=== PATIENT | female | born 1975 | race Caucasian/White ===

== ENCOUNTER 2018-03-05 21:32 | Emergency (ER) | payer OTHER ==
--- NOTE | 2018-03-06 01:10 | ER ---
Nurse's Notes [facility] Name: Jason Gallegos Age: 42 yrs Sex: Female : 1975 Arrival Date: 03/05/2018 Time: 21:52 Bed 11 Private MD: Diagnosis: Thyroid nodule Presentation: 03/05 22:45 Presenting complaint: Patient states: Throat is getting swallow. Patient reports ao getting a viral infections last week and then started notice her neck is getting swallow. Patient report pain in her neck and ear. Transition of care: patient was not received from another setting of care. Onset of symptoms is unknown. Risk Assessment: Do you want to hurt yourself or someone else? Patient reports no desire to harm self or others. Initial Sepsis Screen: Does the patient meet any 2 criteria? No. Patient's initial sepsis screen is negative. Does the patient have a suspected source of infection? No. Patient's initial sepsis screen is negative. Care prior to arrival: None. 22:45 Method Of Arrival: Ambulatory ao 22:45 Acuity: ROLAND 4 ao Triage Assessment: 23:21 General: Appears comfortable, Behavior is calm, cooperative, appropriate for age. Pain: fc Complains of pain in neck Quality of pain is described as aching, dull, Pain began years ago. Is intermittent. EENT: No deficits noted. Neuro: Level of Consciousness is awake, alert, obeys commands, Oriented to person, place, time, situation. Cardiovascular: No deficits noted. Respiratory: No deficits noted. GI: No deficits noted. : No deficits noted. Derm: Skin is pink, warm \T\ dry. knot noted to frontal neck. Musculoskeletal: Circulation, motion, and sensation intact. Capillary refill < 3 seconds, Range of motion: intact in all extremities. 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 - Social history:: Smoking status: Patient/guardian denies using tobacco, Patient/guardian denies using alcohol, street drugs. - Ebola Screening: : Patient negative for fever greater than or equal to 101.5 degrees Fahrenheit, and additional compatible Ebola Virus Disease symptoms Patient denies exposure to infectious person Patient denies travel to an Ebola-affected area in the 21 days before illness onset. Screenin:20 Abuse screen: Denies threats or abuse. Nutritional screening: No deficits noted. fc Tuberculosis screening: No symptoms or risk factors identified. Fall Risk None identified. Assessment: 23:23 Reassessment: No changes from previously documented assessment. Patient and/or family fc updated on plan of care and expected duration. Pain level reassessed. Patient is alert, oriented x 3, equal unlabored respirations, skin warm/dry/pink. 03/06 00:35 Reassessment: Sin MCGOWAN at bedside to see and examine pt. fc Vital Signs: 03/05 22:49 BP 127 / 87; Pulse 82; Resp 18; Temp 98.2(O); Pulse Ox 99% on R/A; Weight 79.38 kg; ao Height 5 ft. 4 in. (162.56 cm); Pain 7/10; 03/06 01:33 Pulse 80; Resp 16; Pulse Ox 99% on R/A; ao 03/05 22:49 Body Mass Index 30.04 (79.38 kg, 162.56 cm) ao ED Course: 03/05 21:52 Patient arrived in ED. ds1 22:47 Triage completed. ao 22:50 Arm band placed on right wrist. Patient placed in waiting room, Patient notified of ao wait time. 23:20 Patient has correct armband on for positive identification. Bed in low position. Call fc light in reach. 23:20 No provider procedures requiring assistance completed. fc 23:29 Sin Quinones NP is PHCP. pm1 23:29 Erasto Young MD is Attending Physician. pm1 03/06 01:33 Patient did not have IV access during this emergency room visit. ao Administered Medications: No medications were administered Outcome: 01:10 Discharge ordered by . pm1 01:33 Discharged to home ambulatory. ao 01:33 Condition: stable 01:33 Discharge instructions given to patient, Instructed on discharge instructions, follow up and referral plans. Demonstrated understanding of instructions, follow-up care, medications, Prescriptions given X 1. 01:34 Patient left the ED. ao Signatures: Abbey Bhatt RN RN Sirisha Vang ds1 Kamlesh Ahuja, RN RN ao Sin Quinones, CHICKEN FANCIER CHICKEN FANCIER pm1
--- NOTE | 2018-03-06 01:10 | EDPHYS ---
Physician Documentation [facility] Name: Jason Gallegos Age: 42 yrs Sex: Female : 1975 Arrival Date: 03/05/2018 Time: 21:52 Bed 11 Private MD: ED Physician Erasto Young HPI: 03/06 01:00 This 42 yrs old Female presents to ER via Ambulatory with complaints of pm1 Throat Pain. 01:00 The patient or guardian complains of nodule on left side of neck. The symptoms are pm1 located anterior right aspect of neck. Onset: The symptoms/episode began/occurred 1 week(s) ago. Context:. Associated signs and symptoms: Pertinent positives: sore throat, Pertinent negatives: fever, headache, nausea, vomiting. The pain does not radiate. The patient has been recently seen by a physician: the patient's primary care provider, Dr. sevilla with similar presenting complaints, and apparently given a diagnosis of pharyngitis. Patient with thyroid node to the right side of her neck that is causing some pain. she has had it biopsied in the past, 1 year ago and it was benign. Patient noticed it again about 1 week ago with symptoms of sore throat. 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 - Social history:: Smoking status: Patient/guardian denies using tobacco, Patient/guardian denies using alcohol, street drugs. - Ebola Screening: : Patient negative for fever greater than or equal to 101.5 degrees Fahrenheit, and additional compatible Ebola Virus Disease symptoms Patient denies exposure to infectious person Patient denies travel to an Ebola-affected area in the 21 days before illness onset. ROS: 03/06 01:00 Constitutional: Negative for fever, chills, and weight loss, Eyes: Negative for injury, pm1 pain, redness, and discharge, ENT: Negative for injury, pain, and discharge. Cardiovascular: Negative for chest pain, palpitations, and edema, Respiratory: Negative for shortness of breath, cough, wheezing, and pleuritic chest pain, Abdomen/GI: Negative for abdominal pain, nausea, vomiting, diarrhea, and constipation, Back: Negative for injury and pain, : Negative for injury, bleeding, discharge, and swelling, MS/Extremity: Negative for injury and deformity, Skin: Negative for injury, rash, and discoloration, Neuro: Negative for headache, weakness, numbness, tingling, and seizure. Neck: Positive for mass, swollen nodes, Negative for pain with movement. Exam: 01:00 Constitutional: This is a well developed, well nourished patient who is awake, alert, pm1 and in no acute distress. Head/Face: Normocephalic, atraumatic. Eyes: Pupils equal round and reactive to light, extra-ocular motions intact. Lids and lashes normal. Conjunctiva and sclera are non-icteric and not injected. Cornea within normal limits. Periorbital areas with no swelling, redness, or edema. ENT: Nares patent. No nasal discharge, no septal abnormalities noted. Tympanic membranes are normal and external auditory canals are clear. Oropharynx with no redness, swelling, or masses, exudates, or evidence of obstruction, uvula midline. Mucous membranes moist. 01:00 Chest/axilla: Normal chest wall appearance and motion. Nontender with no deformity. No lesions are appreciated. Cardiovascular: Regular rate and rhythm with a normal S1 and S2. No gallops, murmurs, or rubs. Normal PMI, no JVD. No pulse deficits. Respiratory: Lungs have equal breath sounds bilaterally, clear to auscultation and percussion. No rales, rhonchi or wheezes noted. No increased work of breathing, no retractions or nasal flaring. Abdomen/GI: Soft, non-tender, with normal bowel sounds. No distension or tympany. No guarding or rebound. No evidence of tenderness throughout. Back: No spinal tenderness. No costovertebral tenderness. Full range of motion. Skin: Warm, dry with normal turgor. Normal color with no rashes, no lesions, and no evidence of cellulitis. MS/ Extremity: Pulses equal, no cyanosis. Neurovascular intact. Full, normal range of motion. Neuro: Awake and alert, GCS 15, oriented to person, place, time, and situation. Cranial nerves II-XII grossly intact. Motor strength 5/5 in all extremities. Sensory grossly intact. Cerebellar exam normal. Normal gait. 01:00 Neck: External neck: mass, that is very small, of the right aspect of thyroid, that is tender to palpation, Lymph nodes: no appreciated lymphadenopathy. Vital Signs: 03/05 22:49 BP 127 / 87; Pulse 82; Resp 18; Temp 98.2(O); Pulse Ox 99% on R/A; Weight 79.38 kg; ao Height 5 ft. 4 in. (162.56 cm); Pain 7/10; 03/06 01:33 Pulse 80; Resp 16; Pulse Ox 99% on R/A; ao 03/05 22:49 Body Mass Index 30.04 (79.38 kg, 162.56 cm) ao MDM: 03/05 23:29 Patient medically screened. pm1 03/06 01:01 Physician consultation: Erasto Young MD regarding consult, patient's condition, pm1 recommends ultrasound outpatient for her possible thyroid nodule. 01:08 Data reviewed: vital signs. Data interpreted: Pulse oximetry: on room air is 99 %. pm1 Interpretation: normal. Counseling: I had a detailed discussion with the patient and/or guardian regarding: the historical points, exam findings, and any diagnostic results supporting the discharge/admit diagnosis, the need for outpatient follow up, to return to the emergency department if symptoms worsen or persist or if there are any questions or concerns that arise at home. Administered Medications: No medications were administered Disposition: 06:41 Co-signature as Attending Physician, Erasto Young MD Available for consultation at ps1 all times. . Disposition: 03/06/18 01:10 Discharged to Home. Impression: Thyroid nodule. - Condition is Stable. - Discharge Instructions: Thyroid Nodule. - Prescriptions for Tylenol- Codeine #3 300-30 mg Oral Tablet - take 2 tablets by ORAL route every 6 hours As needed; 20 tablet. - Medication Reconciliation Form, Thank You Letter, Antibiotic Education, Prescription Opioid Use form. - Follow up: Emergency Department; When: As needed; Reason: Worsening of condition. Follow up: Private Physician; When: 2 - 3 days; Reason: Recheck today's complaints, Continuance of care, Re-evaluation by your physician. - Problem is new. - Symptoms have improved. Signatures: Kamlesh Ahuja, RN RN ao Sin Quinones, BUSINESS TEST ANALYST BUSINESS TEST ANALYST pm1 Erasto Young MD MD ps1 Corrections: (The following items were deleted from the chart) 01:11 01:10 03/06/2018 01:10 Discharged to Home. Impression: Acute pharyngitis. Condition is pm1 Stable. Forms are Medication Reconciliation Form, Thank You Letter, Antibiotic Education, Prescription Opioid Use. Follow up: Emergency Department; When: As needed; Reason: Worsening of condition. Follow up: Private Physician; When: 2 - 3 days; Reason: Recheck today's complaints, Continuance of care, Re-evaluation by your physician. Problem is new. Symptoms have improved. pm1 01:34 01:11 03/06/2018 01:10 Discharged to Home. Impression: Thyroid nodule. Condition is ao Stable. Discharge Instructions: Thyroid Nodule. Prescriptions for Tylenol-Codeine #3 300-30 mg Oral Tablet - take 2 tablets by ORAL route every 6 hours As needed; 20 tablet. and Forms are Medication Reconciliation Form, Thank You Letter, Antibiotic Education, Prescription Opioid Use. Follow up: Emergency Department; When: As needed; Reason: Worsening of condition. Follow up: Private Physician; When: 2 - 3 days; Reason: Recheck today's complaints, Continuance of care, Re-evaluation by your physician. Problem is new. Symptoms have improved. pm1
[2018-03-06 02:53] VITALS: BP 127/87; TEMP 98.2; O2SAT 99
== END 2018-03-06 01:34 | disposition home or self-care (01) ==
LOC: ER 21:32
DX: E04.1 Nontoxic single thyroid nodule (principal); E78.00 Pure hypercholesterolemia, unspecified
CPT/HCPCS: 99282

== ENCOUNTER 2019-11-15 13:50 | Emergency (ER) | payer SELFPAY, OTHER ==
--- OUTSIDE RECORDS SUMMARY | 2019-11-15 13:52 | XMS REPORT | Continuity of Care Document ---
:1975 Author Organization [facility] t Address [address] [place] [address] Care Team Providers Name Role Phone Stacy RN Attending Clinician Unavailable Lab, Fam Pob I Attending Clinician Unavailable Problems This patient has no known problems. Allergies, Adverse Reactions, Alerts This patient has no known allergies or adverse reactions. Medications This patient has no known medications. Procedures This patient has no known procedures. Encounters Start End Encounter Admission Attending Care Care Encounter Source Date/Time Date/Time Type Type Clinicians Facility Department ID 2019-10-16 2019-10-16 Telephone Naomi Kumar [id number] 00:00:00 00:00:00 CENTER LINE [id number] [facility] [id number] 2019-10-14 2019-10-14 Laboratory Lab, [facility] [id number] 06:51:46 07:11:46 Only Fam Pob I Health [id number] [place] [id number] Jay [phone] [address]al [address] Results This patient has no known results.
--- OUTSIDE RECORDS SUMMARY | 2019-11-15 13:53 | XMS REPORT | Summary of Care ---
:1975 Author Organization [facility] Address [address] [place] [address] Care Team Providers Name Role Phone Unavailable Primary Care Provider Unavailable Reason for Visit Reason Comments Exposure Encounter Details Date Type Department Care Team Description 10/14/2019 Laboratory Only [facility] Family Frank Schrader, GLASS LOADING EQUIPMENT TENDER [address] [phone] Exposure to Covid-19 Medicine - [place] [facility], Ad[facility] Fam Pob I Virus [address] [place] [phone] Allergies Active Allergy Reactions Severity Noted Date Comments Morphine Nausea and/or Vomiting 10/30/2012 documented as of this encounter (statuses as of 10/14/2019) Medications Medication Sig Dispensed Refills Start Date End Date Status atorvastatin (LIPITOR) 20 Take 1 Tab by 90 Tab 1 10/11/2014 Active mg tabletIndications: Pure mouth at hypercholesterolemia bedtime. amitriptyline 50 mg tablet Take 50 mg by 0 Active mouth at bedtime. pantoprazole 40 mg EC Take 1 tablet 30 tablet 0 07/30/2016 Active tablet by mouth daily. ibuprofen 600 mg tablet Take 1 tablet 20 tablet 0 07/30/2016 Active by mouth every 8 (eight) hours as needed for Pain (scale 4-6). documented as of this encounter (statuses as of 10/14/2019) Active Problems Problem Noted Date Dyslipidemia 07/28/2016 Obesity (BMI 30-39.9) 07/27/2016 Atypical chest pain 07/27/2016 Multiple thyroid nodules 2014 Weight gain 2014 Fatigue 2014 Pure hypercholesterolemia 2014 Cyst, breast solitary 11/04/2012 Overview: 11/17/2012- IMPRESSION: LEFT BREAST: Simple cyst on ultrasound a t 9 o'clock. Benign, no evidence of malignancy. Age appropriate exams. As per ACR and ACS guidelines, mammmograms recommended starting at age 40. RIGHT BREAST: Negative, no evidence of m alignancy. Normal interval follow-up is recommended in 12 months. These findings and recommendations were discussed in detail with the patient at the conclusion of today's exa mination. OVERALL ASSESSMENT - CATEGORY 2 - BENIGN END OF IMPRESSION Encounter for routine gynecological examination 2012 Overview: Medical records received. Evy. DOS- 08/16/2011. Impression: several masses within the left breast likely representing benign complex cysts. Recommended f/u in 6 months. Benign appearing right breast. ICD10 Diagnosis Term Bottoming Room Supervisor Utility Generalized anxiety disorder 10/30/2012 Migraines 10/30/2012 H/O total hysterectomy 10/30/2012 Anemia 10/30/2012 Overview: ICD10 Diagnosis Term Bottoming Room Supervisor Utility Pain pelvic 10/30/2012 Overview: Medical record received. DOS- 10/26/2012 . Recommendation for Ultrasound. documented as of this encounter (statuses as of 10/14/2019) Social History Tobacco Use Types Packs/Day Years Used Date Never Smoker Smokeless Tobacco: Never Used Alcohol Use Drinks/Week oz/Week Comments Not Asked Sex Assigned at Date Recorded Not on file Job Start Date Occupation Industry Not on file Not on file Not on file Travel History Travel Start Travel End No recent travel history available. COVID-19 Exposure Response Date Recorded In the last month, have you been in contact with Yes 10/13/2019 3:36 PM CDT someone who was confirmed or suspected to have Coronavirus / COVID-19? documented as of this encounter Last Filed Vital Signs Not on filedocumented in this encounter Plan of Treatment Name Type Priority Associated Diagnoses Order S chedule COVID-19 (PCR MOLECULAR LAB Routine Exposure to Covid -19 Expected: 10/14/2019, TESTING) Virus Expires: 2020 Health Maintenance Due Date Last Done Comments DTaP,Tdap,and Td Vaccines (1 1988 - Tdap) Depression Screening 1989 PAP SMEAR 10/31/2015 10/30/2012, 08/27/2003 Breast Cancer Screening 2017 11/17/2012 (MAMMOGRAM) INFLUENZA VACCINE (#1) 2019 PNEUMOCOCCAL 0-64 YEARS Aged Out No longe r eligible based COMBINED SERIES on patient's age to complete this to [facility] documented as of this encounter Results Not on filedocumented in this encounter Visit Diagnoses Diagnosis Exposure to Covid-19 Virus documented in this encounter Additional Health Concerns Infection Onset Date Last Indicated Resolved Time COVID-19 Rule Out 10/14/2019 10/14/2019 documented as of this encounter
--- OUTSIDE RECORDS SUMMARY | 2019-11-15 13:53 | XMS REPORT | Summary of Care ---
:1975 Author Organization [facility] Address [address] [place] [id number] Care Team Providers Name Role Phone Unavailable Primary Care Provider Unavailable Reason for Visit Reason Comments Results Encounter Details Date Type Department Care Team Description 10/16/2019 Telephone [facility] Naomi Kumar RN Results [address] [place] [address] [phone] Allergies Active Allergy Reactions Severity Noted Date Comments Morphine Nausea and/or Vomiting 10/30/2012 documented as of this encounter (statuses as of 10/16/2019) Medications Medication Sig Dispensed Refills Start Date [...] as of this encounter (statuses as of 10/16/2019) Active Problems Problem Noted Date Dyslipidemia 07/28/2016 [...] Benign appearing right breast. ICD10 Diagnosis Term Motor Assembly Supervisor Utility Generalized anxiety disorder 10/30/2012 Migraines 10/30/2012 H/O total hysterectomy 10/30/2012 Anemia 10/30/2012 Overview: ICD10 Diagnosis Term Motor Assembly Supervisor Utility Pain pelvic 10/30/2012 Overview: Medical record received. DOS- 10/26/2012 . Recommendation for Ultrasound. documented as of this encounter (statuses as of 10/16/2019) Social History Tobacco Use Types Packs/Day Years [...] filedocumented in this encounter Plan of Treatment Health Maintenance Due Date Last Done Comments DTaP,Tdap,and Td Vaccines (1 1988 - Tdap) Depression Screening 1989 PAP SMEAR 10/31/2015 10/30/2012, 08/27/2003 Breast Cancer Screening 2017 11/17/2012 (MAMMOGRAM) INFLUENZA VACCINE (#1) 2019 PNEUMOCOCCAL 0-64 YEARS Aged Out No longe r eligible based COMBINED SERIES on patient's age to complete this to [facility] documented as of this encounter Results Not on filedocumented in this encounter Insurance Payer Benefit Plan / Subscriber ID Effective Phone Address [employer] Dates HIM [facility] [id number] 2016-[employer]iley [phone] [address] [employer] [phone] [place] [address] documented as of this encounter
[2019-11-15] MEDS ORDERED: SMZ./TMP. 800/160 MG TABLET ONE (14:45)
--- NOTE | 2019-11-15 15:32 | RAD REPORT ---
EXAM DESCRIPTION: RAD - Chest Single View - 11/15/2019 3:14 pm CLINICAL HISTORY: Cough;Fever Chest pain. COMPARISON: Chest Pa And Lat (2 Views) dated 03/27/2017 FINDINGS: Portable technique limits examination quality. The lungs are grossly clear. The heart is normal in size. No displaced fractures. IMPRESSION: No acute intrathoracic process suspected.
--- NOTE | 2019-11-15 17:18 | ER ---
Nurse's Notes [facility] Name: Jason Gallegos Age: 44 yrs Sex: Female : 1975 Arrival Date: 11/15/2019 Time: 13:52 Bed 15 Private MD: Enrique Johnson R Diagnosis: Cellulitis of left lower limb Presentation: 11/14 14:13 Chief complaint: Patient states: fever up to 102.9 F, cough, sore throat, hoarse voice, aa5 and chest pressure that began . Last Tylenol was today around 1230. 14:13 Coronavirus screen: cough unrelated to allergies, fever, sore throat, Client presents aa5 with at least one sign or symptom that may indicate coronavirus-19. Standard/surgical mask placed on the client. Provider contacted for isolation considerations. Ebola Screen: Patient negative for fever greater than or equal to 101.5 degrees Fahrenheit, and additional compatible Ebola Virus Disease symptoms. Initial Sepsis Screen: Does the patient meet any 2 criteria? No. Patient's initial sepsis screen is negative. Does the patient have a suspected source of infection? No. Patient's initial sepsis screen is negative. Risk Assessment: Do you want to hurt yourself or someone else? Patient reports no desire to harm self or others. Onset of symptoms was November 2019. 14:13 Method Of Arrival: Ambulatory aa5 14:13 Acuity: ROLAND 3 aa5 Historical: - Allergies: 14:13 No Known Allergies; aa5 - PMHx: 14:13 Endometrosis; High Cholesterol; Migraines; aa5 - PSHx: 14:13 Hysterectomy; Appendectomy; Cholecystectomy; aa5 - Immunization history:: Adult Immunizations up to date. - Family history:: not pertinent. - Social history:: Smoking status: Patient denies any tobacco usage or history of. - Hospitalizations: : No recent hospitalization is reported. Screenin:54 Abuse screen: Denies threats or abuse. Denies injuries from another. Nutritional ks7 screening: No deficits noted. Tuberculosis screening: No symptoms or risk factors identified. Fall Risk None identified. Assessment: 14:52 General: Appears in no apparent distress. uncomfortable, Behavior is cooperative. Pain: ks7 Complains of pain in sore throat, "achy bones", FRANK Pain currently is 8 out of 10 on a pain scale. Quality of pain is described as aching, Pain began 2-3 days ago. Is continuous. Respiratory: Airway is patent Respiratory effort is even, BARR[place]AN Breath sounds are clear bilaterally. in right upper lobe, left upper lobe, left posterior lower lobe, right posterior middle lobe and right posterior lower lobe. EENT: Throat is reddened with gag reflex present. 15:51 Reassessment: Patient is alert, oriented x 3, equal unlabored respirations, skin ks7 warm/dry/pink. Vital Signs: 14:13 BP 142 / 72; Pulse 97; Resp 16 S; Temp 99.7(O); Pulse Ox 99% on R/A; aa5 14:30 BP 142 / 72; Pulse 88; Resp 18; Pulse Ox 97% on R/A; Pain 8/10; ks7 15:50 BP 119 / 80; Pulse 90; Resp 18; Pulse Ox 100% on R/A; Pain 7/10; ks7 17:22 BP 109 / 75; Pulse 93; Resp 18; Pulse Ox 100% on R/A; Pain 5/10; ks7 18:04 BP 109 / 75; Pulse 85; Resp 18; Temp 99.4(O); Pulse Ox 96% on R/A; Pain 5/10; ks7 ED Course: 13:52 Patient arrived in ED. ag5 13:53 Enrique Johnson MD is Private Physician. ag5 13:59 Cesar Bender MD is Attending Physician. rn 14:13 Arm band placed on. aa5 14:27 Rupinder Booth, ROSA ELENA is Primary Nurse. ks7 14:33 Triage completed. aa5 14:52 COVID-19 Sent. ks7 14:52 Flu Sent. ks7 14:52 Strep Sent. ks7 14:54 Resting quietly. ks7 14:54 Patient has correct armband on for positive identification. Bed in low position. Call ks7 light in reach. Side rails up X2. 14:54 No provider procedures requiring assistance completed. Patient did not have IV access ks7 during this emergency room visit. Administered Medications: 14:52 Drug: Bactrim (160 mg-800 mg (DS) 1 tablet Route: PO; ks7 Outcome: 17:18 Discharge ordered by . rn 18:04 Discharged to home ambulatory. ks7 18:04 Condition: stable 18:04 Discharge instructions given to patient, Instructed on discharge instructions, medication usage, Demonstrated understanding of instructions, medications, Prescriptions given X 1. 18:07 Patient left the ED. ks7 Addendum: 11/18/2019 11:55 Addendum: COVID-19 Result: Positive result giiven to ED physician to notify pt. i w Physician: Matthias Benavidez MD Physician was able to contact pt and pt was notified of positive COVID-19 swab result. Physician answered pt questions. Signatures: Vale Ortega, RN Cesar Small MD MD rn Calderon, Audri, RN RN aa5 Anup Son 5 Rupinder Booth RN RN ks7 Corrections: (The following items were deleted from the chart) 11/14 14:56 14:54 BP 142 / 72; Pulse 88bpm; Resp 18bpm; Pulse Ox 97% RA; Pain 8/10; ks7 ks7
--- NOTE | 2019-11-15 17:18 | EDPHYS ---
Physician Documentation [facility] Name: Jason Gallegos Age: 44 yrs Sex: Female : 1975 Arrival Date: 11/15/2019 Time: 13:52 Bed 15 Private MD: Enrique Johnosn R ED Physician Cesar Bender HPI: 11/14 14:45 This 44 yrs old Female presents to ER via Ambulatory with complaints of rn Cough, Fever, Sore Throat, Chest Pressure. 14:45 The patient or guardian reports cough, chest pressure. rn 14:45 Onset: The symptoms/episode began/occurred 3 day(s) ago. Severity of symptoms: At their rn worst the symptoms were mild, in the emergency department the symptoms are unchanged. Associated signs and symptoms: Pertinent positives: fever, sore throat, cough, rash. The patient has experienced similar episodes in the past. Reports fever and chills, + myalgias, began a few days ago, assoc with mild cough and chest pressure, also reports "another staph infection" to left outer thigh. No abd pain or urinary symptoms. . Historical: - Allergies: 14:13 No Known Allergies; aa5 - PMHx: 14:13 Endometrosis; High Cholesterol; Migraines; aa5 - PSHx: 14:13 Hysterectomy; Appendectomy; Cholecystectomy; aa5 - Immunization history:: Adult Immunizations up to date. - Family history:: not pertinent. - Social history:: Smoking status: Patient denies any tobacco usage or history of. - Hospitalizations: : No recent hospitalization is reported. ROS: 14:45 Constitutional: + fever Eyes: Negative for injury, pain, redness, and discharge, ENT: + rn sore throat Neck: Negative for injury, pain, and swelling, Cardiovascular: Negative for chest pain, palpitations, and edema, Respiratory: + cough, neg sob Abdomen/GI: Negative for abdominal pain, nausea, vomiting, diarrhea, and constipation, MS/Extremity: Negative for injury and deformity, Skin: Negative for injury, rash, and discoloration, Neuro: Negative for weakness, numbness, tingling, and seizure. Exam: 14:45 Constitutional: This is a well developed, well nourished patient who is awake, alert, rn and in no acute distress. Head/Face: Normocephalic, atraumatic. ENT: no stridor Cardiovascular: Regular rate and rhythm. No pulse deficits. Respiratory: Speaking full sentences. No increased work of breathing, no retractions or nasal flaring. Abdomen/GI: soft, non-tender Skin: Warm, dry, + left outer mid-thigh with draining wound, + purulence, no fluctuance, + approx 8-10cm irregular erythema with warmth and blanches MS/ Extremity: Pulses equal, no cyanosis. Neurovascular intact. Full, normal range of motion. Equal circumference. Neuro: Awake and alert, GCS 15, oriented to person, place, time, and situation. Cranial nerves II-XII grossly intact. Motor strength 5/5 in all extremities. Sensory grossly intact. Cerebellar exam normal. Normal gait. Vital Signs: 14:13 BP 142 / 72; Pulse 97; Resp 16 S; Temp 99.7(O); Pulse Ox 99% on R/A; aa5 14:30 BP 142 / 72; Pulse 88; Resp 18; Pulse Ox 97% on R/A; Pain 8/10; ks7 15:50 BP 119 / 80; Pulse 90; Resp 18; Pulse Ox 100% on R/A; Pain 7/10; ks7 17:22 BP 109 / 75; Pulse 93; Resp 18; Pulse Ox 100% on R/A; Pain 5/10; ks7 18:04 BP 109 / 75; Pulse 85; Resp 18; Temp 99.4(O); Pulse Ox 96% on R/A; Pain 5/10; ks7 MDM: 13:59 Patient medically screened. rn 17:17 Differential Diagnosis: Upper Respiratory Infection Viral Syndrome Pneumonia Other rn COVID-19, staph, cellulitis. Data reviewed: vital signs, nurses notes, lab test result(s), radiologic studies, plain films, and as a result, I will discharge patient. Counseling: I had a detailed discussion with the patient and/or guardian regarding: the historical points, exam findings, and any diagnostic results supporting the discharge/admit diagnosis, lab results, radiology results, the need for outpatient follow up, to return to the emergency department if symptoms worsen or persist or if there are any questions or concerns that arise at home. Special discussion: I discussed with the patient/guardian in detail that at this point there is no indication for admission to the hospital. It is understood, however, that if the symptoms persist or worsen the patient needs to return immediately for re-evaluation. 11/14 14:25 Order name: Strep rn 11/14 14:25 Order name: Flu rn 11/14 14:25 Order name: COVID-19 rn 11/14 14:25 Order name: XRAY Chest (1 view) rn 11/14 16:47 Order name: Group A Streptococcus Rapid Sc; Complete Time: 17:17 EDMS 11/14 16:59 Order name: Influenza Screen (A ; Complete Time: 17:17 EDMS 11/14 15:32 Order name: RAD; Complete Time: 15:43 EDMS Administered Medications: 14:52 Drug: Bactrim (160 mg-800 mg (DS) 1 tablet Route: PO; ks7 Disposition: 11/15/19 17:18 Discharged to Home. Impression: Cellulitis of left lower limb. - Condition is Stable. - Discharge Instructions: Cellulitis, Adult. - Prescriptions for Bactrim DS 800- 160 mg Oral Tablet - take 1 tablet by ORAL route every 12 hours for 10 days; 20 tablet. - Medication Reconciliation Form, Thank You Letter, Antibiotic Education, Prescription Opioid Use, Work release form form. - Follow up: Private Physician; When: As needed; Reason: Recheck today's complaints, Re-evaluation by your physician. - Problem is new. - Symptoms have improved. Signatures: Dispatcher [employer] EDMS Cesar Bender MD MD rn Calderon, Audri RN RN aa5 Rupinder Booth RN RN ks7 Corrections: (The following items were deleted from the chart) 18:06 17:18 11/15/2019 17:18 Discharged to Home. Impression: Cellulitis of left lower limb. ks7 Condition is Stable. Forms are Medication Reconciliation Form, Thank You Letter, Antibiotic Education, Prescription Opioid Use. Follow up: Private Physician; When: As needed; Reason: Recheck today's complaints, Re-evaluation by your physician. Problem is new. Symptoms have improved. rn 18:07 18:06 11/15/2019 17:18 Discharged to Home. Impression: Cellulitis of left lower limb. ks7 Condition is Stable. Discharge Instructions: Cellulitis, Adult. Prescriptions for Bactrim DS 800-160 mg Oral Tablet - take 1 tablet by ORAL route every 12 hours for 10 days; 20 tablet. and Forms are Medication Reconciliation Form, Thank You Letter, Antibiotic Education, Prescription Opioid Use, Work release form. Follow up: Private Physician; When: As needed; Reason: Recheck today's complaints, Re-evaluation by your physician. Problem is new. Symptoms have improved. ks7
[2019-11-15 18:27] VITALS: BP 109/75
[2019-11-15 18:28] VITALS: TEMP 99.4; O2SAT 96
== END 2019-11-15 18:07 | disposition home or self-care (01) ==
LOC: ER 13:50
DX: U07.1 COVID-19 (principal); L03.116 Cellulitis of left lower limb
CPT/HCPCS: 71045; 87070; 87081; 87804; 99283; U0002

== ENCOUNTER 2020-06-22 17:02 | Emergency (ER) | payer OTHER, SELFPAY ==
--- OUTSIDE RECORDS SUMMARY | 2020-06-22 17:05 | XMS REPORT | Continuity of Care Document ---
:1975 Author Organization [facility] t Address [address] [place] [address] [address]. [address] [place] [address] Care Team Providers Name Role Phone Stacy [...] 2019-10-16 2019-10-16 Telephone Naomi Kumar [id number] 00:00:00 00:00:00 [place] [id number] [facility] [id number] [phone] 2019-10-14 2019-10-14 Laboratory Lab, [facility] [id number] 06:51:46 07:11:46 Only [facility] [id number] [place] [id number] Professio [phone] nal [address] One Results This patient has no known results.
[2020-06-22] MEDS ORDERED: CEFTRIAXONE/SWI 1gm 1 GM/10 ML SYR ONE (20:27)
[2020-06-22 20:42] LABS: Absolute Lymphocytes (CBC) 2.6 K/uL (0.7-4.9); Basophils % 1.3 % (0-1.3); Lymphocytes % 40.7 % (15.3-44.8); RBC Red Blood Cell Count 4.92 M/uL (3.86-4.86)
[2020-06-22] MEDS ORDERED: ONDANSETRON 4 MG/2 ML VIAL ONE (20:50)
[2020-06-22] MEDS ORDERED: MORPHINE 2 MG/ML SYR ONE (20:50)
[2020-06-22 21:12] LABS: ALT/SGPT 19 U/L (12-78); AST/SGOT 12 U/L (15-37); Albumin 4.1 g/dL (3.4-5.0); BUN Blood Urea Nitrogen 9 mg/dL (7-18); Bicarbonate 30 mmol/L (21-32); Bilirubin Direct 0.2 mg/dL (0-0.2); Bilirubin Total 0.7 mg/dL (0.2-1.0); Glucose Level 74 mg/dL (74-106); Magnesium 2.6 mg/dL (1.8-2.4); Potassium 3.7 mmol/L (3.5-5.1); Protein, Total 7.6 g/dL (6.4-8.2); Sodium Level 141 mmol/L (136-145); Thyroid Stimulating Hormone 0.324 uIU/mL (0.360-3.740); Troponin (Emerg Dept Use Only) < 0.02 ng/mL (0.0-0.045)
[2020-06-22 21:14] LABS: Alkaline Phosphatase ND U/L (45-117)
--- NOTE | 2020-06-22 21:29 | RAD REPORT ---
EXAM DESCRIPTION: RAD - Chest Single View - 06/22/2020 8:45 pm CLINICAL HISTORY: COUGH COMPARISON: Single-view chest November 15, 2019 TECHNIQUE: AP portable chest image was obtained 06/22/2020 8:45 pm . FINDINGS: Lungs are clear. Heart and vasculature are normal. No measurable pleural effusion and no p neumothorax. No acute bony abnormality seen. No acute aortic findings suspected. IMPRESSION: No acute cardiopulmonary process. No significant change from comparison study.
[2020-06-22 21:59] LABS: Blood Morphology Comment NOT SEEN (NOT SEEN); Platelet Estimate ADEQ; White Blood Cell Scan OK (OK)
[2020-06-22] MEDS ORDERED: AMOX/K CLAV 875 MG TAB ONE (22:10)
[2020-06-22] MEDS ORDERED: dexAMETHasone 10 MG/ML VIAL ONE (22:10)
--- NOTE | 2020-06-22 22:13 | EDPHYS ---
Physician Documentation [facility] Name: Jason Gallegos Age: 45 yrs Sex: Female : 1975 Arrival Date: 06/22/2020 Time: 17:05 Bed 15 Private MD: YASH Physician Niko Hoff HPI: 06/22 20:03 This 45 yrs old Female presents to ER via Ambulatory with complaints of Neck javed Issue, Ear Pain. 20:03 The patient presents with pain, that is acute. The complaints affect the right ear, javed left ear and chin. Onset: The symptoms/episode began/occurred 3 day(s) ago. Modifying factors: The symptoms are alleviated by nothing, the symptoms are aggravated by nothing. Associated signs and symptoms: The patient has no apparent associated signs or symptoms. Severity of symptoms: At their worst the symptoms were mild in the emergency department the symptoms are unchanged. The patient has not experienced similar symptoms in the past. 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 - Social history:: Smoking status: Patient denies any tobacco usage or history of. - Family history:: not pertinent. ROS: 20:03 Constitutional: Negative for fever, chills, and weight loss, Eyes: Negative for injury, javed pain, redness, and discharge, Neck: Negative for injury, pain, and swelling, Cardiovascular: Negative for chest pain, palpitations, and edema, Respiratory: Negative for shortness of breath, cough, wheezing, and pleuritic chest pain, Abdomen/GI: Negative for abdominal pain, nausea, vomiting, diarrhea, and constipation, Back: Negative for injury and pain, : Negative for injury, bleeding, discharge, and swelling, MS/Extremity: Negative for injury and deformity, Skin: Negative for injury, rash, and discoloration, Neuro: Negative for headache, weakness, numbness, tingling, and seizure, Psych: Negative for depression, anxiety, suicide ideation, homicidal ideation, and hallucinations, Allergy/Immunology: Negative for hives, rash, and allergies, Endocrine: Negative for neck swelling, polydipsia, polyuria, polyphagia, and marked weight changes, Hematologic/Lymphatic: Negative for swollen nodes, abnormal bleeding, and unusual bruising. 20:03 ENT: Positive for ear pain, hearing loss. Exam: 20:03 Constitutional: This is a well developed, well nourished patient who is awake, alert, javed and in no acute distress. Head/Face: Normocephalic, atraumatic. Eyes: Pupils equal round and reactive to light, extra-ocular motions intact. Lids and lashes normal. Conjunctiva and sclera are non-icteric and not injected. Cornea within normal limits. Periorbital areas with no swelling, redness, or edema. Neck: Trachea midline, no thyromegaly or masses palpated, and no cervical lymphadenopathy. Supple, full range of motion without nuchal rigidity, or vertebral point tenderness. No Meningismus. Chest/axilla: Normal chest wall appearance and motion. Nontender with no deformity. No lesions are appreciated. Cardiovascular: Regular rate and rhythm with a normal S1 and S2. No gallops, murmurs, or rubs. Normal PMI, no JVD. No pulse deficits. Respiratory: Lungs have equal breath sounds bilaterally, clear to auscultation and percussion. No rales, rhonchi or wheezes noted. No increased work of breathing, no retractions or nasal flaring. Abdomen/GI: Soft, non-tender, with normal bowel sounds. No distension or tympany. No guarding or rebound. No evidence of tenderness throughout. Back: No spinal tenderness. No costovertebral tenderness. Full range of motion. Female : Normal external genitalia. Skin: Warm, dry with normal turgor. Normal color with no rashes, no lesions, and no evidence of cellulitis. MS/ Extremity: Pulses equal, no cyanosis. Neurovascular intact. Full, normal range of motion. Neuro: Awake and alert, GCS 15, oriented to person, place, time, and situation. Cranial nerves II-XII grossly intact. Motor strength 5/5 in all extremities. Sensory grossly intact. Cerebellar exam normal. Normal gait. 20:03 ENT: Ear canal(s): are normal, no acute changes, TM's: dullness, erythema, that is mild, on the left. 21:45 ECG was reviewed by the Attending Physician. [facility] Vital Signs: 17:14 BP 132 / 81; Pulse 77; Resp 16; Temp 98.7; Pulse Ox 100% ; Weight 73.03 kg; Height 5 ll1 ft. 4 in. (162.56 cm); Pain 7/10; 17:14 Body Mass Index 27.64 (73.03 kg, 162.56 cm) ll1 MDM: 19:14 Patient medically screened. javed 20:12 Differential diagnosis: otitis media. Data reviewed: vital signs, nurses notes, lab [facility] test result(s), EKG, radiologic studies, plain films. Data interpreted: phototypesetting equipment monitor: rate is 77 beats/min, rhythm is regular. Test interpretation: by ED physician or midlevel provider: ECG, plain radiologic studies. Counseling: I had a detailed discussion with the patient and/or guardian regarding: the historical points, exam findings, and any diagnostic results supporting the discharge/admit diagnosis, lab results, radiology results, the need for outpatient follow up, for definitive care, an ENT specialist. 06/22 20:03 Order name: Basic Metabolic Panel [facility] 06/22 20:03 Order name: CBC with Diff [facility] 06/22 20:03 Order name: LFT's; Complete Time: 21:[address] [facility] 06/22 20:03 Order name: Magnesium; Complete Time: 21:[address] [facility] 06/22 20:03 Order name: Troponin (emerg Dept Use Only); Complete Time: 21:[address] [facility] 06/22 20:03 Order name: TSH; Complete Time: 21:[address] [facility] 06/22 20:03 Order name: XRAY Chest (1 view); Complete Time: 21:[address] [facility] 06/22 20:03 Order name: EKG; Complete Time: 20:[address] [facility] 06/22 20:04 Order name: Basic Metabolic Panel; Complete Time: 21:39 EDDC 06/22 20:24 Order name: Soft Tissue Neck W/Contr CT [facility] 06/22 21:59 Order name: CBC Smear Scan [facility]DC 06/22 20:03 Order name: Cardiac monitoring; Complete Time: 21:[address] [facility] 06/22 20:03 Order name: EKG - Nurse/Tech; Complete Time: 21:[address] [facility] 06/22 20:03 Order name: IV Saline Lock; Complete Time: 21:[address] [facility] 06/22 20:03 Order name: Labs collected and sent; Complete Time: 21:[address] [facility] 06/22 20:03 Order name: O2 Per Protocol; Complete Time: : [facility] 06/22 20:03 Order name: O2 Sat Monitoring; Complete Time: 20: [facility] EC:45 Rate is 63 beats/min. Rhythm is regular. QRS [place] is Normal. DC interval is normal. QRS javed interval is normal. QT interval is normal. No Q waves. T waves are Normal. No ST changes noted. Clinical impression: NSR w/ Non-specific ST/T Changes and No evidence of ischemia. Interpreted by me. Reviewed by me. Administered Medications: 21:07 Drug: Rocephin - (cefTRIAXone) 1 grams Route: IVPB; Infused Over: 30 mins; Site: right iw antecubital; 22:22 Drug: Augmentin (Amoxicillin-Clavulanate) 875 mg Route: PO; iw 22:22 Drug: Decadron - Dexamethasone 10 mg Route: IVP; Site: right antecubital; iw Disposition: 06/22/20 22:12 Discharged to Home. Impression: Otitis media, unspecified, left ear, Strain of muscle, fascia and tendon at neck level, Thyrotoxicosis [hyperthyroidism]. - Condition is Stable. - Discharge Instructions: Otitis Media, Adult, Otitis Media, Adult, [id number], Ear Drops, Adult, [id number]. - Prescriptions for Augmentin 875- 125 mg Oral Tablet - take 1 tablet by ORAL route every 12 hours for 10 days; 20 tablet. Tylenol- Codeine #3 300-30 mg Oral Tablet - take 2 tablets by ORAL route every 4-6 hours As needed; 20 tablet. Saritha- D 12 Hour 60-120 mg Oral Tablet Sustained Release 12 hr - take 1 tablet by ORAL route every 12 hours As needed; 20 tablet. Ciprodex 0.3- 0.1 % Otic Drops, Suspension - instill 4 drop by OTIC route every 12 hours for 7 days , for ears ONLY; 1 Container. - Work release form, Medication Reconciliation Form, Thank You Letter, Antibiotic Education, Prescription Opioid Use form. - Follow up: Private Physician; When: 2 - 3 days; Reason: Recheck today's complaints, Continuance of care, Re-evaluation by your physician. Follow up: Lashay Cage; When: 2 - 3 days; Reason: Recheck today's complaints, Re-evaluation by your physician. - Problem is new. - Symptoms have improved. Signatures: Dispatcher [employer] EDNiko Whiting MD MD cha Williams, Irene, RN RN iw Mark Randolph RN RN ll1 Corrections: (The following items were deleted from the chart) 23:14 22:12 06/22/2020 22:12 Discharged to Home. Impression: Otitis media, unspecified, left iw ear; Strain of muscle, fascia and tendon at neck level; Thyrotoxicosis [hyperthyroidism]. Condition is Stable. Discharge Instructions: Otitis Media, Adult, Otitis Media, Adult, [id number], Ear Drops, Adult, [id number]. Prescriptions for Augmentin 875-125 mg Oral Tablet - take 1 tablet by ORAL route every 12 hours for 10 days; 20 tablet, Tylenol-Codeine #3 300-30 mg Oral Tablet - take 2 tablets by ORAL route every 4-6 hours As needed; 20 tablet, Saritha-D 12 Hour 60-120 mg Oral Tablet Sustained Release 12 hr - take 1 tablet by ORAL route every 12 hours As needed; 20 tablet, Ciprodex 0.3-0.1 % Otic Drops, Suspension - instill 4 drop by OTIC route every 12 hours for 7 days , for ears ONLY; 1 Container. and Forms are Medication Reconciliation Form, Thank You Letter, Antibiotic Education, Prescription Opioid Use. Follow up: Private Physician; When: 2 - 3 days; Reason: Recheck today's complaints, Continuance of care, Re-evaluation by your physician. Follow up: Lashay Cage; When: 2 - 3 days; Reason: Recheck today's complaints, Re-evaluation by your physician. Problem is new. Symptoms have improved. javed
--- NOTE | 2020-06-22 22:13 | ER ---
Nurse's Notes [facility] Name: Jason Gallegos Age: 45 yrs Sex: Female : 1975 Arrival Date: 06/22/2020 Time: 17:05 Bed 15 Private MD: Diagnosis: Otitis media, unspecified, left ear;Strain of muscle, fascia and tendon at neck level;Thyrotoxicosis [hyperthyroidism] Presentation: 06/22 17:14 Chief complaint: Patient states: Bilateral neck pain and lymph node swelling getting ll1 progressively worse over 1 week. FRANK, ear feel stopped up, pain from neck radiates down R arm. + weak, tired, fatigue. No known fever. Nausea off/on. Coronavirus screen: Client denies travel out of the [place] in the last 14 days. At this time, the client does not indicate any symptoms associated with coronavirus-19. Ebola Screen: Patient denies travel to an Ebola-affected area in the 21 days before illness onset. Initial Sepsis Screen: Does the patient meet any 2 criteria? No. Patient's initial sepsis screen is negative. Does the patient have a suspected source of infection? No. Patient's initial sepsis screen is negative. Risk Assessment: Do you want to hurt yourself or someone else? Patient reports no desire to harm self or others. Onset of symptoms was June 15, 2020. 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 - Social history:: Smoking status: Patient denies any tobacco usage or history of. - Family history:: not pertinent. Screenin:40 Abuse screen: Denies threats or abuse. Denies injuries from another. Nutritional iw screening: No deficits noted. Tuberculosis screening: No symptoms or risk factors identified. Fall Risk None identified. Assessment: 19:38 General: Appears in no apparent distress. Behavior is calm, cooperative. General: iw Reports fatigue for Denies fever. Pain: Complains of pain in right aspect of thyroid and right sternocleidomastoid. Neuro: Level of Consciousness is awake, alert, obeys commands, Oriented to person, place, time, situation. Cardiovascular: Patient's skin is warm and dry. Respiratory: Respiratory effort is even, unlabored, Respiratory pattern is regular, symmetrical. EENT: Throat is clear Reports pain in neck. Musculoskeletal: Range of motion: intact in all extremities. 21:15 Reassessment: Patient appears in no apparent distress at this time. Patient and/or iw family updated on plan of care and expected duration. Pain level reassessed. Patient is alert, oriented x 3, equal unlabored respirations, skin warm/dry/pink. 22:22 Reassessment: Patient appears in no apparent distress at this time. Patient and/or iw family updated on plan of care and expected duration. Pain level reassessed. Patient is alert, oriented x 3, equal unlabored respirations, skin warm/dry/pink. Vital Signs: 17:14 BP 132 / 81; Pulse 77; Resp 16; Temp 98.7; Pulse Ox 100% ; Weight 73.03 kg; Height 5 ll1 ft. 4 in. (162.56 cm); Pain 7/10; 17:14 Body Mass Index 27.64 (73.03 kg, 162.56 cm) ll1 ED Course: 17:05 Patient arrived in ED. ds1 17:17 Triage completed. ll1 17:18 Arm band placed on. ll1 19:09 Dania Hernandez, RN is Primary Nurse. dm5 19:09 Primary Nurse role handed off by Dania Hernandez, ROSA ELENA iw 19:09 Vale Ortega, RN is Primary Nurse. iw 19:14 Niko Hoff MD is Attending Physician. javed 19:38 Patient has correct armband on for positive identification. iw 20:30 Initial lab(s) drawn, by me, sent to lab. Inserted saline lock: 22 gauge in right iw antecubital area, using aseptic technique. 20:45 XRAY Chest (1 view) In Process Unspecified. EDMS 21:33 Soft Tissue Neck W/Contr CT In Process Unspecified. EDMS 22:12 Lashay Cage MD is Referral Physician. javed 23:13 No provider procedures requiring assistance completed. IV discontinued, intact, iw bleeding controlled, No redness/swelling at site. Pressure dressing applied. Administered Medications: 21:07 Drug: Rocephin - (cefTRIAXone) 1 grams Route: IVPB; Infused Over: 30 mins; Site: right iw antecubital; 22:22 Drug: Augmentin (Amoxicillin-Clavulanate) 875 mg Route: PO; iw 22:22 Drug: Decadron - Dexamethasone 10 mg Route: IVP; Site: right antecubital; iw Outcome: 22:12 Discharge ordered by . javed 23:13 Discharged to home ambulatory, with family. iw 23:13 Condition: good 23:13 Discharge instructions given to patient, Instructed on discharge instructions, follow up and referral plans. medication usage, Demonstrated understanding of instructions, follow-up care, medications, Prescriptions given X 3. 23:14 Patient left the ED. iw Signatures: Dispatcher [employer] EDMS Dania Hernandez RN RN dm5 Anderson, Corey, MD MD cha Sanford, Demi ds1 Vale Ortega RN RN iw Mark Randolph RN RN ll1
[2020-06-22 23:20] VITALS: BP 132/81; TEMP 98.7; O2SAT 100
--- NOTE | 2020-06-23 09:17 | RAD REPORT ---
EXAM DESCRIPTION: Soft Tissue Neck W/Contr 06/22/2020 9:59 PM CDT CLINICAL HISTORY: 45 years, Female, PAIN COMPARISON: None. TECHNIQUE: Multiple transaxial tomograms of the neck were obtained from the base of the skull to the pulmonary apex utilizing 3 mm slice thickness at 3 mm interval reconstruction after the administrati on of 100 cc of Omnipaque 350 at a rate of 3.0 cc/s. In addition coronal and sagittal spinal reformat s were generated and reviewed. An individualized dose optimization technique, Automated Exposure Control, was utilized for the perfo rmed procedure. FINDINGS: Skull base demonstrate to be normal. Nasopharynx, oropharynx, hypopharynx is normal. The re is no evidence for significant abnormal enhancement of the mucosa. There is no evidence for signif icant abnormal masses and/or peritonsillar abscess and/or prevertebral abscess. Parapharyngeal space demonstrate to be normal. Parotid and submandibular glands are normal. Dental amalgam limits the eval uation. Tiny nondiagnostic lymph nodes are seen within the posterior neck. Paravertebral elements are grossly unremarkable. There is no evidence for significant neck lymphadenopathy. The thyroid g land demonstrate to be within normal limits. Tiny heterogeneous nodule measuring 8.3 mm left side on image 56/69. IMPRESSION: Unremarkable soft tissue neck with contrast. No masses, abscess formation and/or signifi cant cervical lymphadenopathy. Electronically signed by: Fernando Puckett MD 06/22/2020 10:03 PM CDT Due to temporary technical issues with the PACS/Fluency reporting system, reports are being signed by the in house radiologist without review as a courtesy to ensure prompt reporting. The interpreting r adiologist is fully responsible for the content of the report.
== END 2020-06-22 23:14 | disposition home or self-care (01) ==
LOC: ER 17:02
DX: S16.1XXA Strain of muscle, fascia and tendon at neck level, initial encounter (principal); H66.92 Otitis media, unspecified, left ear; E05.90 Thyrotoxicosis, unspecified without thyrotoxic crisis or storm; X58.XXXA Exposure to other specified factors, initial encounter; E78.00 Pure hypercholesterolemia, unspecified
CPT/HCPCS: 36415; 70491; 71045; 80048; 80076; 83735; 84443; 84484; 85025; 93005; 96374; 96375; 99284; J0696; J1100; J2270; J2405; Q9967

== ENCOUNTER 2021-08-03 14:30 | Emergency (ER) | payer SELFPAY ==
--- OUTSIDE RECORDS SUMMARY | 2021-08-03 14:33 | XMS REPORT | Continuity of Care Document ---
:1975 Author Organization [facility] t Address [address] [place] [address] [address] [place] [address] Care Team Providers Name Role Phone Stacy RN Attending Clinician Unavailable Lab, Fam Pob I Attending Clinician Unavailable ANENE Attending Clinician Unavailable Problems This patient has no known problems. Allergies, Adverse Reactions, Alerts Allergy Allergy Status Severity Reaction(s) Onset Inactive Treating Comm ents Source Name Type Date Date Clinician MORPHINE DRUG Active N/V [facility] 10-30 ity of 00:: [address] Medications This patient has no known medications. Procedures This patient has no known procedures. Encounters Start End Encounter Admission Attending Care Care Encounter Source Date/Time Date/Time Type Type Clinicians Facility Department ID 2019-10-16 2019-10-16 Telephone Naomi Kumar [id number] 00:00:00 00:00:00 DENNIS [id number] [facility] [id number] 2019-10-14 2019-10-14 Laboratory Lab, [facility] [id number] 06:51:46 07:11:46 Only Fam Pob I Health [id number] [place] [id number] Jay [id number] [address]al [address] 2019-10-14 2019-10-14 Outpatient R [facility] [id number] Univers 07:00:00 07:00:00 ity [facility] 2019-10-14 2019-10-14 Outpatient R XI [facility] [id number] [facility] 07:00:00 07:00:00 UMER barba [facility] Results This patient has no known results.
[2021-08-03] MEDS ORDERED: DIAZEPAM 10 MG/2 ML INJ SYRINGE ONE (15:16)
[2021-08-03] MEDS ORDERED: KETOROLAC 30 MG/ML INJ ONE (15:16)
[2021-08-03 15:24] LABS: Absolute Lymphocytes (CBC) 2.4 K/uL (0.7-4.9); Hematocrit 40.1 % (36.0-45.0); Lymphocytes % 32.1 % (15.3-44.8); MPV 9.1 fL (7.6-11.3); RBC Red Blood Cell Count 4.69 M/uL (3.86-4.86)
[2021-08-03 15:27] LABS: Protime INR 1.07
[2021-08-03 15:40] LABS: ALT/SGPT 15 U/L (12-78); AST/SGOT 7 U/L (15-37); Albumin 3.7 g/dL (3.4-5.0); Alkaline Phosphatase 56 U/L (45-117); BUN Blood Urea Nitrogen 14 mg/dL (7-18); Bicarbonate 26 mmol/L (21-32); Bilirubin Total 0.4 mg/dL (0.2-1.0); Glucose Level 89 mg/dL (74-106); Magnesium 2.1 mg/dL (1.8-2.4); NT PRO-BNP 179 pg/mL (<125); Potassium 3.1 mmol/L (3.5-5.1); Protein, Total 7.2 g/dL (6.4-8.2); Sodium Level 139 mmol/L (136-145)
[2021-08-03 15:41] LABS: Bilirubin Direct < 0.1 mg/dL (0-0.2); Troponin High Sensitivity < 3.0 pg/mL (<58.9)
--- NOTE | 2021-08-03 15:57 | RAD REPORT ---
EXAM DESCRIPTION: RAD - C Spine Ap/Lat - 08/03/2021 3:33 pm CLINICAL HISTORY: neck pain Neck pain, radiculopathy COMPARISON: No comparisons FINDINGS: Cervical bodies are normal in height and alignment.No fracture or acute bony process seen. Disc thinning with small endplate osteophytes lower cervical spine. No prevertebral soft tissue thickening or other suspicious soft tissue finding. IMPRESSION: Mild lower cervical spondylosis.
--- NOTE | 2021-08-03 15:59 | RAD REPORT ---
EXAM DESCRIPTION: RAD - Chest Single View - 08/03/2021 3:33 pm CLINICAL HISTORY: CHEST PAIN Chest pain. COMPARISON: Chest Single View dated 06/22/2020; Chest Single View dated 11/15/2019; Chest Pa And Lat (2 Views) dated 03/27/2017 FINDINGS: Portable technique limits examination quality. The lungs are grossly clear. The heart is normal in size. No displaced fractures.Subtle dextroscolios is of the thoracic spine. IMPRESSION: No acute intrathoracic process suspected.
--- NOTE | 2021-08-03 17:20 | ER ---
Nurse's Notes [facility] Name: Jason Gallegos Age: 46 yrs Sex: Female : 1975 Arrival Date: 08/03/2021 Time: 14:32 Bed 25 Private MD: Diagnosis: Chest pain, unspecified;Radiculopathy, cervical region Presentation: 08/03 14:40 Chief complaint: Patient states: Headache, left sided neck pain X 1 day. Today pt began ld1 to feel chest pain \\T\\ left arm numbness at 12:00. Pt reports going to [facility] last week for the same complaints - was told it was a "nerve" problem. Coronavirus screen: At this time, the client does not indicate any symptoms associated with coronavirus-19. Ebola Screen: No symptoms or risks identified at this time. Initial Sepsis Screen: Does the patient meet any 2 criteria? No. Patient's initial sepsis screen is negative. Does the patient have a suspected source of infection? No. Patient's initial sepsis screen is negative. Risk Assessment: Do you want to hurt yourself or someone else? Patient reports no desire to harm self or others. Onset of symptoms was August 03, 2021. 14:40 Method Of Arrival: Ambulatory ld1 14:40 Acuity: ROLAND 3 ld1 Triage Assessment: 14:42 General: Appears in no apparent distress. uncomfortable, Behavior is cooperative, ld1 anxious. Pain: Complains of pain in chest and left sternocleidomastoid Pain does not radiate. Pain currently is 6 out of 10 on a pain scale. Quality of pain is described as throbbing. EENT: No signs and/or symptoms were reported regarding the EENT system. Neuro: Level of Consciousness is awake, alert, obeys commands, Oriented to person, place, time, situation. Cardiovascular: Capillary refill < 3 seconds Patient's skin is warm and dry. Rhythm is sinus tachycardia. Respiratory: Airway is patent Respiratory effort is even, unlabored. Derm: Reports tingling, since in left arm since 1200 today.. Musculoskeletal: Reports numbness in left arm. 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 - Social history:: Smoking status: Patient denies any tobacco usage or history of. Patient/guardian denies using alcohol. Screenin:08 Abuse screen: Denies threats or abuse. Denies injuries from another. Nutritional ab2 screening: No deficits noted. Tuberculosis screening: No symptoms or risk factors identified. Fall Risk None identified. Assessment: 15:08 General: Appears in no apparent distress. comfortable, Behavior is calm, cooperative, ab2 appropriate for age. Pain: Complains of pain in left arm and chest Pain began 2-3 days ago. Neuro: No deficits noted. Level of Consciousness is awake, alert, obeys commands, Oriented to person, place, time, situation, Appropriate for age Shoe Repairer are equal bilaterally Moves all extremities. Gait is steady, Speech is normal, Facial symmetry appears normal. Cardiovascular: Denies chest pain, Heart tones S1 S2 present Patient's skin is warm and dry. Rhythm is sinus rhythm. Respiratory: Airway is patent Respiratory effort is even, unlabored, Respiratory pattern is regular, symmetrical, Breath sounds are clear bilaterally. GI: No deficits noted. No signs and/or symptoms were reported involving the gastrointestinal system. Abdomen is round non-distended, Bowel sounds present X 4 quads. : No deficits noted. No signs and/or symptoms were reported regarding the genitourinary system. Vital Signs: 14:40 BP 129 / 73; Pulse 107; Resp 22; Temp 98.6(TE); Pulse Ox 100% on R/A; Weight 63.5 kg; ld1 Height 5 ft. 4 in. (162.56 cm); Pain 6/10; 15:30 BP 119 / 71; Pulse 101; Resp 18; Pulse Ox 99% on R/A; ab2 17:07 BP 127 / 79; Pulse 97; Resp 17; Pulse Ox 99% on R/A; ab2 14:40 Body Mass Index 24.03 (63.50 kg, 162.56 cm) ld1 ED Course: 14:32 Patient arrived in ED. mr 14:39 Yadiel Gann PA is PHCP. [facility] 14:39 Priti Reyes MD is Attending Physician. [facility] 14:40 Vibha Richardson, RN is Primary Nurse. ld1 14:42 Triage completed. ld1 14:42 Arm band placed on right wrist. ld1 14:57 Scottie Oliver is Primary Nurse. ab2 15:08 No provider procedures requiring assistance completed. Inserted saline lock: 20 gauge ab2 in right antecubital area, using aseptic technique. Patient maintains SpO2 saturation greater than 95% on room air. 15:09 Patient has correct armband on for positive identification. Bed in low position. Call ab2 light in reach. Side rails up X2. silk trimmer on. Pulse ox on. NIBP on. 15:35 Chest Single View XRAY In Process Unspecified. EDMS 15:35 C Spine Ap/Lat XRAY In Process Unspecified. EDMS 17:19 Drew Fields MD is Referral Physician. [facility] 17:27 IV discontinued, intact, bleeding controlled, No redness/swelling at site. Pressure ab2 dressing applied. Administered Medications: 15:14 Drug: Valium (diazepam) 5 mg Route: IVP; Site: left antecubital; ab2 17:26 Follow up: Response: No adverse reaction ab2 15:14 Drug: Ketorolac 30 mg Route: IVP; Site: left antecubital; ab2 17:26 Follow up: Response: No adverse reaction ab2 Outcome: 17:20 Discharge ordered by . jmm 17:27 Discharged to home ambulatory, with family. ab2 17:27 Condition: good 17:27 Discharge instructions given to patient, family, Instructed on discharge instructions, follow up and referral plans. medication usage, Demonstrated understanding of instructions, follow-up care, medications, Prescriptions given X 3. 17:27 Patient left the ED. ab2 Signatures: Dispatcher [employer] EDTN Yadiel Gann PA PA [facility] Josephine Jones mr Vibha Richardson, RN RN ld1 Scottie Oliver ab2
--- NOTE | 2021-08-03 17:21 | EDPHYS ---
Physician Documentation [facility] Name: Jason Gallegos Age: 46 yrs Sex: Female : 1975 Arrival Date: 08/03/2021 Time: 14:32 Bed 25 Private MD: ED Physician Priti Reyes HPI: 08/03 14:52 This 46 yrs old Female presents to ER via Ambulatory with complaints of Chest Pain, jmm Headache, Numbness Of Arm. 14:52 The patient or guardian complains of pain. Onset: The symptoms/episode began/occurred jmm gradually, 1 week(s) ago. Associated signs and symptoms: The patient denies any alcohol use. This is a 46 year old female with a history of HLP, migraines that presents to the ED with complaints of left sided neck pain radiating into the left arm. Patient also complaints of substernal chest pain which radiates into her back. Was seen at [facility] 1 week ago and diagnosed with a "pinched nerve". . 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 - Social history:: Smoking status: Patient denies any tobacco usage or history of. Patient/guardian denies using alcohol. ROS: 14:52 Constitutional: Negative for fever, chills, and weight loss. jmm 14:52 Neck: Positive for pain with movement. 14:52 Cardiovascular: Positive for chest pain. 14:52 All other systems are negative. Exam: 14:52 Constitutional: This is a well developed, well nourished patient who is awake, alert, jmm and in no acute distress. Head/Face: atraumatic. Eyes: EOMI, no conjunctival erythema appreciated ENT: Moist Mucus Membranes 14:52 Respiratory: Normal respirations, no respiratory distress appreciated Abdomen/GI: Non distended, soft Back: Normal ROM Skin: General appearance color normal MS/ Extremity: Moves all extremities, no obvious deformities appreciated, no edema noted to the lower extremities Neuro: Awake and alert Psych: Behavior is normal, Mood is normal, Patient is cooperative and pleasant 14:52 Neck: ROM/movement: pain, that is mild, with any movement. 14:52 Chest/axilla: Inspection: normal, Palpation: is normal, no tenderness. 14:52 Cardiovascular: Rate: normal, Rhythm: regular. Vital Signs: 14:40 BP 129 / 73; Pulse 107; Resp 22; Temp 98.6(TE); Pulse Ox 100% on R/A; Weight 63.5 kg; ld1 Height 5 ft. 4 in. (162.56 cm); Pain 6/10; 15:30 BP 119 / 71; Pulse 101; Resp 18; Pulse Ox 99% on R/A; ab2 17:07 BP 127 / 79; Pulse 97; Resp 17; Pulse Ox 99% on R/A; ab2 14:40 Body Mass Index 24.03 (63.50 kg, 162.56 cm) ld1 MDM: 14:52 Patient medically screened. tonny 17:16 Data reviewed: vital signs, nurses notes. Counseling: I had a detailed discussion with tonny the patient and/or guardian regarding: the historical points, exam findings, and any diagnostic results supporting the discharge/admit diagnosis, lab results, radiology results, the need for outpatient follow up, to return to the emergency department if symptoms worsen or persist or if there are any questions or concerns that arise at home. ED course: Patient is alert and non toxic in appearance in the ED. Troponin negative. I do not suspect acs. D-dimer negative. I do not suspect PE. 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 Patient advised to follow up with cardiology and spine. Patient otherwise given strict return precautions. patient understood and agrees with the plan of care. . 08/03 14:56 Order name: Basic Metabolic Panel; Complete Time: 15:46 [facility] 08/03 14:56 Order name: CBC with Diff; Complete Time: 15:46 [facility] 08/03 14:56 Order name: D-Dimer; Complete Time: 15:46 [facility] 08/03 14:56 Order name: LFT's; Complete Time: 15:46 [facility] 08/03 14:56 Order name: Magnesium; Complete Time: 15:46 [facility] 08/03 14:56 Order name: NT PRO-BNP; Complete Time: 15:46 [facility] 08/03 14:56 Order name: PT-INR; Complete Time: 15:46 [facility] 08/03 14:56 Order name: Troponin HS; Complete Time: 15:46 [facility] 08/03 14:56 Order name: EKG; Complete Time: 14:57 [facility] 08/03 14:56 Order name: Cardiac monitoring; Complete Time: 14:57 [facility] 08/03 15:02 Order name: Chest Single View XRAY; Complete Time: 16:02 [facility] 08/03 15:04 Order name: C Spine Ap/Lat XRAY; Complete Time: 16:02 [facility] 08/03 14:56 Order name: EKG - Nurse/Tech; Complete Time: 14:57 [facility] 08/03 14:56 Order name: IV Saline Lock; Complete Time: 14:57 [facility] 08/03 14:56 Order name: Labs collected and sent; Complete Time: 14:58 [facility] 08/03 14:56 Order name: O2 Per Protocol; Complete Time: 14:58 [facility] 08/03 14:56 Order name: O2 Sat Monitoring; Complete Time: 14:58 [facility] Administered Medications: 15:14 Drug: Valium (diazepam) 5 mg Route: IVP; Site: left antecubital; ab2 17:26 Follow up: Response: No adverse reaction ab2 15:14 Drug: Ketorolac 30 mg Route: IVP; Site: left antecubital; ab2 17:26 Follow up: Response: No adverse reaction ab2 Disposition: 18:13 Co-signature as Attending Physician, Priti Reyes MD. ma2 Disposition Summary: 08/03/21 17:20 Discharge Ordered Location: Home [facility] Condition: Stable [facility] Diagnosis - Chest pain, unspecified jmm - Radiculopathy, cervical region jmm Followup: [facility] - With: Drew Fields MD - When: 2 - 3 days - Reason: Recheck today's complaints, Continuance of care, Re-evaluation by your physician Discharge Instructions: - Discharge Summary Sheet jmm - Cervical Radiculopathy jmm - Nonspecific Chest Pain, Adult jmm Forms: - Medication Reconciliation Form [facility] - Thank You Letter jm - Antibiotic Education jmm - Prescription Opioid Use jmm - Work release form [facility] Prescriptions: - Zanaflex 4 mg Oral Tablet - take 1 tablet by ORAL route every 8 hours As needed; 20 tablet; Refills: 0, [facility] Product Selection Permitted - Diclofenac Sodium 75 mg Oral Tablet Sustained Release - take 1 tablet by ORAL route 2 times per day; 30 tablet; Refills: 0, Product [facility] Selection Permitted - Medrol (Ranjit) 4 mg Oral Tablets, Dose Pack - take 1 tablet by ORAL route as directed - follow package instructions; 1 [facility] packet; Refills: 0, Product Selection Permitted Signatures: Dispatcher [employer] EDYadiel Garcia PA PA [facility] Priti Reyes MD MD ma2 Vibha Richardson RN RN ld1 Scottie Oliver2
[2021-08-03 19:27] VITALS: TEMP 98.6
[2021-08-03 19:29] VITALS: O2SAT 99
[2021-08-03 19:35] VITALS: BP 127/79
--- NOTE | 2021-08-04 07:45 | EKG ---
Test Date: 2021-08-03 Test Time: 14:38:26 Psychological Stress Evaluator: MEASUREMENT RESULTS: Intervals: Rate: 94 MT: 136 QRSD: 86 QT: 350 QTc: 437 [place]: P: 94 MT: 136 QRS: -14 T: 7 INTERPRETIVE STATEMENTS: Normal sinus rhythm Voltage criteria for left ventricular hypertrophy Abnormal ECG Compared to ECG 06/22/2020 20:56:48 Left ventricular hypertrophy now present Electronically Signed On 08-04-21 07:42:26 CDT by Darnell Woodall
== END 2021-08-03 17:27 | disposition home or self-care (01) ==
LOC: ER 14:30
DX: M54.12 Radiculopathy, cervical region (principal); E78.00 Pure hypercholesterolemia, unspecified; Z88.5 Allergy status to narcotic agent
CPT/HCPCS: 36415; 71045; 72040; 80048; 80076; 83735; 83880; 84484; 85025; 85379; 85610; 93005; 96374; 96375; 99285; J3360